=== PATIENT | male | born 1945 | race Caucasian/White ===

== ENCOUNTER → 2017-03-16 | Outpatient (CLI) | payer MEDICARE, BC ==
[~2017-03-16] MED LIST: ASPI325T PO; FISH1CAP59 PO; LANS15TA3 PO; LEVO75TA10 PO; LOSA1TAB96 PO; MULT-1175 PO; SIMV20TA6 PO
--- NOTE | 2017-03-16 09:11 | DI ---
INDICATION: ITS.REASON: Z01.89 PRE-OP EXAM PROCEDURE: CHEST 2-VIEWS UPRIGHT (PA \T\ LAT) Encounter: Initial COMPARISON: None FINDINGS: The lungs are clear without evidence of focal abnormal airspace opacity. There is no pleural effusion or pneumothorax. The heart size, mediastinal contours and pulmonary vascularity are within normal limits. There is no significant skeletal abnormality. IMPRESSION: No acute cardiopulmonary disease. .
== END ==
LOC: IMA 08:46
PROVIDERS: ATTEND Internal Medicine
DX: Z01.89 Encounter for other specified special examinations (principal)

== ENCOUNTER 2017-06-23 05:36 | Inpatient (IN) ==
[2017-06-23] MEDS ORDERED: SALINE FLUSH 10ml SYRINGE IVF PRN (05:52)
[2017-06-23 05:56] VITALS: BMI 25.8
[2017-06-23] MEDS ORDERED: CEFAZOLIN 1 G INJECTION IVP ONE (06:00)
[2017-06-23] MEDS ORDERED: METOCLOPRAMIDE 10mg/2ml INJECTION IVP ONE (06:00)
[2017-06-23] MEDS ORDERED: NOZIN NASAL SWAB NAS ONE ×2 (06:00→10:24)
[2017-06-23] MEDS ORDERED: ACETAMINOPHEN 500 MG TABLET PO ONE (06:00)
[2017-06-23] MEDS ORDERED: TRANEXAMIC ACID 1,000 MG in NS 100 ML IV ONE ×2 (06:00→07:00)
[2017-06-23] MEDS ORDERED: LIDOCAINE 1% (10mg/ml) 2mL INJ PF SDV ID ONE (06:00)
[2017-06-23] MEDS ORDERED: ONDANSETRON 4 MG/2 ML INJECTION IVP ONE (06:00)
[2017-06-23] MEDS ORDERED: FAMOTIDINE PB 20 MG/50 ML BAG IV ONE (06:00)
[2017-06-23] MEDS ORDERED: DEXAMETHASONE 4 MG/ML INJECTION IVP ONE (06:00)
[2017-06-23] MEDS: LR 1,000 ML IV SCH ×3 (06:21→09:20)
[2017-06-23] MEDS ORDERED: VANCOMYCIN 1,000 MG INJECTION ONE (06:23)
--- NOTE | 2017-06-23 06:45 | Anesthesia Preoperative Report ---
Anesthesia Preoperative Record - Date and Time Date: 06/23/17 Preoperative Diagnosis: Rt TKA (RA) M17.11 primary osteoarthritis Proposed Procedure: right total knee NPO Since Date: 06/22/17 NPO Since Time: 23:00 Allergies/Adverse Reactions: Allergies Allergy/AdvReac Type Severity Reaction Status Date / Time No Known Drug Allergies Allergy Unknown Verified 06/23/17 06:03 - Vital Signs Vital Signs: Temperature 98.0 F 06/23/17 05:55 Pulse Rate 64 06/23/17 06:07 Respiratory Rate 17 06/23/17 05:55 Blood Pressure 152/84 H 06/23/17 05:55 Pulse Oximetry 97 06/23/17 05:55 Height and Weight: Height 1.83 m Weight 86.3 kg Body Mass Index 25.8 - Medications Inpatient Medications: Current Medications Lactated Ringer's (Lactated Ringers) 1,000 mls @ 50 mls/hr IV .Q20H VIDHYA Last Admin: 06/23/17 06:21 Dose: 50 mls/hr Epinephrine HCl 0.25 mg/Bupivacaine HCl 30 ml/Morphine Sulfate 15 mg/Ketorolac Tromethamine 60 mg/Sodium Chloride 65.25 mls @ 0 mls/hr OPSITE INTRAOP ONE; Per Protocol PRN Reason: Protocol Stop: 06/23/17 08:01 Tranexamic Acid 1,000 mg/ (Sodium Chloride) 110 mls @ 660 mls/hr IV INTRAOP ONE Stop: 06/23/17 07:09 Sodium Chloride (Iv Flush) 10 - 80 ml IVF PRN PRN PRN Reason: Flushing Home Medications: Home Medications Medication Instructions Recorded Confirmed Type Lansoprazole [Prevacid] 1 tab PO DAILY #0 tab 04/29/15 06/23/17 History Levothyroxine Sodium 1 tab PO DAILY #0 04/29/15 06/23/17 History Losartan/Hydrochlorothiazide 1 tab PO DAILY #0 04/29/15 06/23/17 History [Losartan-Hctz 100-25 mg Tab] Multivitamin [Multi-Vitamin Daily] 1 tab PO DAILY #0 04/29/15 06/23/17 History omega-3 fatty acids 300 mg capsule 300 mg PO DAILY 04/19/17 06/23/17 History Aspirin 1 tab PO DAILY 06/20/17 06/20/17 History Pravastatin [Pravachol] 40 mg PO HS 06/20/17 06/23/17 History - Medical History Cardiovascular: Reports: Hypertension, Other (sees keypuncher and stress test within 1 yr, no [facility] ) - Surgical History HEENT Surgeries: Reports: Nose Surgery (sinus surgery) Cardiac Surgeries/Treatments: Reports: Cardiac Catheterization (2001, 2004), Other (Hyperlipidemia) GI Surgery/Treatments: Reports: Hernia Repair Surgery/Treatment: REPORT: Transurethral Resection, Other (bladder tumors 8 years ago) Musculoskeletal Surgery/Tx: Reports: Knee Arthroscopy (x2-Rt & Lt meniscus repairs), Total Knee Replacement (Lt TKA) Anesthesia Reactions: None Hx Family Anesthesia Reaction: No History of Motion Sickness: No - Social History Smoking Status: Former smoker - Pertinent Findings EKG Rhythm: Normal Sinus Rhythm - Physical Exam Respiratory Exam: Present: lungs clear, bilateral breath sounds equal Cardiovascular Exam: Present: regular rate and rhythm, no murmur - Airway Assessment Mallampati Score: II TMD: 3 Fingerbreadths - ASA ASA Score: 2 - Plan Regional/Trunk Block: Spinal Peripheral Nerve Block: Saphenous-Right, Saphenous-Left - Discussion Discussion: Discussed risks/options/alternatives of anesthesia and questions answered. Patient consents. Nursing pain assessment noted. Attestation Statement: Prior to the delivery of any anesthetic medication, I examined the patient, developed the plan, obtained the patient's consent and discussed the risk and benefits of the procedure with the patient/guardian.
[2017-06-23] MEDS ORDERED: MIDAZOLAM 2mg/2ml INJECTION IVP ONE (06:46)
[2017-06-23] MEDS ORDERED: ROPIVACAINE 0.5% (5mg/ml) 30ml INJ ONE (06:51)
[2017-06-23] MEDS ORDERED: FentaNYL 100 MCG/2 ML INJECTION ONE (07:04)
[2017-06-23] MEDS ORDERED: PROPOFOL 500 MG/50 ML VIAL IV ONE (07:19)
[2017-06-23] MEDS ORDERED: MIDAZOLAM 2mg/2ml INJECTION ONE (07:20)
[2017-06-23] MEDS ORDERED: KETAMINE 500 MG/10 ML INJECTION ONE (07:20)
[2017-06-23] MEDS ORDERED: EPINEPHrine 0.25 MG, BUPIVACAINE 0.25% PF 30 ML, MORPHINE SULFATE 15 MG, KETOROLAC INJ ... OPSITE ONE (08:00)
[2017-06-23] MEDS ORDERED: EPHEDRINE 50mg/ml INJECTION ONE (08:24)
--- NOTE | 2017-06-23 08:26 | Anesthesia Procedure Note ---
Peripheral Nerve Blockade - Procedure Physician: Dada Mills MD Date: 06/23/17 Surgical Procedure: right knee arthroplasty Discussion: Discussed risks/options/alternatives of anesthesia and questions answered. Patient consents. Nursing pain assessment noted. Block Start: 06:58 Block Stop: 06:59 Blocked Employed: [employer] Indication: Post-Operative Pain Approach: Right Side Confirmed Position: Supine Patient: Consent, Risks/Benefits Discussed, Post Block Act. Discussed IV Sedation: Yes Midazolam (mg): 2 Initial Vital Signs: Temperature 98.0 F 06/23/17 05:55 Temperature Source Oral 06/23/17 05:55 Pulse Rate 66 06/23/17 05:55 Respiratory Rate 17 06/23/17 05:55 Blood Pressure 152/84 H 06/23/17 05:55 Blood Pressure Mean 106 06/23/17 05:55 Blood Pressure Position Sitting 06/23/17 05:55 Pulse Oximetry 97 06/23/17 05:55 Oxygen Delivery Method 06/23/17 05:55 Post Vital Signs: Temperature 98.0 F 06/23/17 05:55 Pulse Rate 66 06/23/17 07:00 Respiratory Rate 14 06/23/17 07:00 Blood Pressure 131/82 06/23/17 06:56 Pulse Oximetry 97 06/23/17 07:00 Initial Pain Pain Score: 2 Post Block Pain Score: 2 Prep: Chlorhexadine/ETOH Ultrasound Used?: Yes - Injectate Ropivacaine (%): 0.5 Ropivacaine (mL): 20 Injection: Injection made incrementally with constant monitoring and aspiration every ml
[2017-06-23] MEDS ORDERED: VANCOMYCIN 1,000 MG INJECTION IAR ONE (09:03)
--- NOTE | 2017-06-23 09:22 | Operative Note ---
- Procedure Side: right Preoperative Diagnosis: knee primary DJD Postoperative Diagnosis: Same as preoperative diagnosis. Operation: total knee arthroplasty Surgeon: Tu Mills MD Manager E Learning: Grant Moctezuma Complications: None. Regional/Trunk Block: Spinal Peripheral Nerve Block: Saphenous-Right Estimated Blood Loss: See Anesthesia Record. Fluids: Please see Anesthesia Record. Description of Procedure: Mr. Pringle and his right knee were identified and marked in the preoperative holding area. He was brought back to the operating suite and spinal anesthetic was administered he was then placed supine on the operating table. A saphenous nerve block had been placed in the preoperative holding area. The right lower extremity was prepped and draped in my normal sterile fashion. Timeout was performed. Mr. Mcclain Rosa preoperative CT scan and this was used with the [employer] robot during surgery. A standard anterior midline incision followed by medial parapatellar arthrotomy was performed. I then placed tibial and femoral arrays. The tibial array was placed mid shaft and the femoral array was placed in the distal medial femoral metaphysis. Checkpoints were also placed. A medial release was performed as well as removal of the anterior fat pad and anterior meniscus. The bone was then pressure with the robot. Osteophytes were removed. Gaps were then captured at 0 and 90 with the [employer] software. We then balanced the knee using the [employer] software. The [employer] robotic arm was then brought in to help assist with the bone cuts. After this remaining meniscus and osteophytes were removed. Trial component was placed with a 9 mm spacer. This gave him full range of motion and he was well balanced throughout. The patella was then resurfaced to a size 35. The bone was then prepared for cementing and components were cemented in place and allowed to cure in extension. Betadine solution was used during the surgery as well as joint injection into the soft tissue. After the cement had cured a final check was performed and is happy with a 9 mm spacer so final 9 mm spacer was placed. 1 g vancomycin powder was placed into the knee joint before the capsulotomy was closed with #1 Vicryl. 2- 0 Vicryl was used in the subcutaneous tissue followed by running 4-0 Monocryl in the skin. Dermabond was used on the skin followed by Dermabond and sterile dressing. The drapes were then removed and he was taken to the recovery room under the care of anesthesia.
--- NOTE | 2017-06-23 09:38 | History & Physical Update ---
- History and Physical Update Date: 06/23/17 Update: I evaluated this patient and found no changes in the history and clinical exam findings. The treatment plan and recommendations are also unchanged from the previous documentation.
--- NOTE | 2017-06-23 10:02 | Anesthesia Postoperative Note ---
- Date and Time Date: 06/23/17 Time: 10:02 - Status Patient Participated in Evaluation: Patient Participated in Person Vital Signs: Temperature 96.2 F L 06/23/17 09:43 Pulse Rate 64 06/23/17 09:43 Respiratory Rate 12 06/23/17 09:43 Blood Pressure 134/72 06/23/17 09:43 Pulse Oximetry 93 06/23/17 09:43 Respiratory Function: Airway Patent, Regular Respirations Cardiovascular Function: Regular Pulse Mental Status: Alert and Oriented Pain Intensity: 0 Hydration: IV Infusing Complications During Recover: None Apparent Post Anesthesia Care Notes: moves lower extremeties, block level T10 - Follow-Up Instructions Instructions: Per Surgeon
[2017-06-23] MEDS ORDERED: DiphenhydrAMINE 50 MG/ML INJECTION IVP PRN (10:24)
[2017-06-23] MEDS ORDERED: LORazepam 1 MG TABLET PO PRN (10:24)
[2017-06-23] MEDS ORDERED: TRAMADOL 50 MG TABLET PO PRN (10:24)
[2017-06-23] MEDS ORDERED: ONDANSETRON 4 MG/2 ML INJECTION IVP PRN (10:24)
[2017-06-23] MEDS ORDERED: DiphenhydrAMINE 25 MG CAPSULE PO PRN (10:24)
--- NOTE | 2017-06-23 10:46 | XRay Report ---
Indication: Post-Op Right Knee Total Knee Arthroplasty PROCEDURE: XR knee RT 2V: Encounter: Initial Comparison: None Findings: Postoperative changes of right total knee replacement are seen. There is expected postoperative subcutaneous gas. No evidence of hardware failure or acute fracture. No retained radiopaque surgical instruments or sponges. Overlying material causing artifact. Impression: New right total knee prosthesis without evidence of immediate complication. .
[2017-06-23] MEDS: NS 1,000 ML IV SCH (10:53)
[2017-06-23] MEDS: ACETAMINOPHEN 325 MG TABLET PO SCH ×3 (12:14→21:45)
[2017-06-23] MEDS: NOZIN NASAL SWAB NAS SCH ×2 (13:40→21:46)
[2017-06-23] MEDS: CEFAZOLIN 2 G in NS 100 ML IV SCH ×2 (14:47→22:25)
[2017-06-23] MEDS ORDERED: Oxycodone *IR* 15 MG TABLET PO PRN (18:30)
[2017-06-23] MEDS ORDERED: SENNOSIDES 8.6 MG TABLET PO SCH (21:00)
[2017-06-23] MEDS ORDERED: PRAVASTATIN 40 MG TABLET PO SCH (21:00)
[2017-06-23] MEDS ORDERED: RIVAROXABAN 10 MG TABLET PO SCH (21:00)
[2017-06-23] MEDS: SYSTANE EYE DROPS 0.7ml EACH EYE SCH ×2 (21:45→22:26)
[2017-06-23] MEDS: DOCUSATE SODIUM 100 MG CAPSULE PO SCH (21:48)
[2017-06-23] MEDS: Oxycodone *IR* 5 MG TABLET PO PRN (22:00)
[2017-06-24] MEDS: NS 1,000 ML IV SCH (02:33)
[2017-06-24] MEDS: NOZIN NASAL SWAB NAS SCH (05:31)
[2017-06-24] MEDS ORDERED: PANTOPRAZOLE 20 MG TABLET PO SCH (06:30)
[2017-06-24] MEDS ORDERED: LEVOTHYROXINE 75 MCG TABLET PO SCH (06:30)
--- NOTE | 2017-06-24 07:37 | Orthopedic Progress Note ---
Date: Subjective/Severity of Illness: Curt is doing great. No CP, cough or SOA. Slept poorly but for no specific reason. O2 sats dipped during the night but are normal this AM Orthopedic Objective PO Vital signs: Temperature 97.8 F 06/24/17 03:31 Pulse Rate 77 06/24/17 03:31 Respiratory Rate 18 06/24/17 05:00 Blood Pressure 153/85 H 06/24/17 03:31 Pulse Oximetry 95 06/24/17 05:00 Height and Weight: Height 6 ft Weight 196 lb 3.382 oz Body Mass Index 25.8 - Constitutional General Appearance: Present: alert, no acute distress - Respiratory Exam Present: non-labored - Cardiovascular Exam Present: pedal pulses intact Capillary Refill: < 2-3 Seconds - Extremities Exam Extremities: Present: pulses intact. Absent: calf tenderness - Surgical Site Incision: clean, dry, intact, Mepilex dressing intact, no drainage, bloody drainage present (on the lower pin sites. ) - Integumentary Exam Present: pink, warm, dry - Neurological Exam Present: no deficits - Psychiatric Exam Present: alert - Labs Result Diagrams: 06/24/17 04:12 06/24/17 04:12 Abnormal lab results 06/24/17 06/24/17 Range/Units 04:12 04:12 WBC 17.3 H (4.5-11.0) T/MM3 RBC 3.78 L (4.50-5.90) M/MM3 Hgb 10.9 L (13.5-17.5) GM/DL Hct 33.3 L (41-53) % MPV 9.2 L (9.4-12.4) UM3 BUN 21.0 H (9-20) MG/DL Glucose 117 H (75-110) MG/DL H & H 06/24/17 Range/Units 04:12 Hgb 10.9 L (13.5-17.5) GM/DL Hct 33.3 L (41-53) % Orthopedic Assessment and Plan (1) Primary osteoarthritis of right knee Status: Acute Assessment and Plan: Current anti-coagulation protocol for VTE prophylaxis. SCD's. Wean from O2. WBC slightly elevated. This is likely a stress response to surgery and to IV steroids pre op. Monitor. PT/OT services to improve independent function. Discharge Planning per Case Management. - Anticoagulation Therapy Anticoagulation: other (Xarelto x 1 month. ) Hospital Course Summary Disclaimer: The visit summary below is not to be considered part of the above Progress Note.
[2017-06-24 07:51] VITALS: PULSE 80; RESP 16; O2SAT 99
[2017-06-24] MEDS: DOCUSATE SODIUM 100 MG CAPSULE PO SCH (08:05)
[2017-06-24] MEDS: ACETAMINOPHEN 325 MG TABLET PO SCH (08:07)
[2017-06-24] MEDS: SYSTANE EYE DROPS 0.7ml EACH EYE SCH (08:08)
[2017-06-24] MEDS ORDERED: POLYETHYL GLYCOL 3350 17gm PACKET PO SCH (09:00)
[2017-06-24] MEDS ORDERED: OMEGA-3 ACID ESTERS 1 GM CAPSULE PO SCH (09:00)
[2017-06-24] MEDS ORDERED: SENNOSIDES 8.6 MG TABLET PO PRN (09:40)
[2017-06-24] MEDS: Oxycodone *IR* 5 MG TABLET PO PRN (10:16)
[2017-06-24 11:45] VITALS: BP 160/85; TEMP 97
--- NOTE | 2017-06-24 13:33 | Discharge Summary ---
Orthopedic Discharge Info Date of admission: 06/23/17 05:36 Primary care physician: Ankur Palomino DO Attending Physician: Dada Mills MD Consults: 06/23/17 05:52 Consult to Anesthesiology [CONS] Routine Consulting Provider: PRISCILLA Castellon Reason For Exam: Preoperative Assessment 06/23/17 10:24 Case Management Consult [CONS] Routine Reason For Exam: Discharge Planning DME-Walker [CONS] Routine Height: 6 ft Weight: 190 lb 4.143 oz Comment: change dressing in 2 weeks Total Joint Outpatient Therapy [CONS] Routine Comment: change dressing in 2 weeks - Discharge Diagnosis (1) Primary osteoarthritis of right knee Status: Acute - Procedures Procedures: Procedures Right TKA - Laboratory Result Diagrams: 06/24/17 04:12 06/24/17 04:12 Laboratory: Abnormal lab results 06/24/17 06/24/17 Range/Units 04:12 04:12 WBC 17.3 H (4.5-11.0) T/MM3 RBC 3.78 L (4.50-5.90) M/MM3 Hgb 10.9 L (13.5-17.5) GM/DL Hct 33.3 L (41-53) % MPV 9.2 L (9.4-12.4) UM3 BUN 21.0 H (9-20) MG/DL Glucose 117 H (75-110) MG/DL H & H 06/24/17 Range/Units 04:12 Hgb 10.9 L (13.5-17.5) GM/DL Hct 33.3 L (41-53) % Orthopedic Discharge HPI - HPI Comments This patient was admitted for elective surgical tx of end stage degenerative joint disease that failed to respond to conservative treatment. Further details of this is found in the admission H&P. Orthopedic Hospital Course Hospital course: 06/24/17 13:31 After appropriate preoperative clearance and signing of operative consent, the patient was given IV antibiotics, according to orthopedic protocol. The patient was taken to the operating room and underwent elective joint arthroplasty. Following surgery, antibiotics were discontinued less than 24 hours according to joint protocol. Appropriate anticoagulants were initiated and SCDs added for DVT prevention. The dressing was clean, dry, and intact. Pain control was obtained via multimodal approach. Bowel motivation addressed with scheduled and PRN medications. Early mobilization was initiated through PT services. Discharge arrangements made by a collaborative effort between the patient and Case Management. Follow-up is scheduled in 2-3 weeks. Discharge instructions given by orthopedic providers and nursing staff at discharge. Discharge condition was good. Ongoing care required?: No - Postoperative Anemia patient received IVF, labs monitored daily, no intervention required, HGB drop- acceptable - Leukocytosis due to preoperative IV Decadron Discharge Plan - Med Rec/Dispo Referrals/Follow Up: Dada Mills MD [Physician] - 07/18/17 11:30 am Additional Instructions: PHYSICAL THERAPY, [place] ON 06/28/2017 AT 1:15PM FOR PHYSICAL THERAPY WINTER. PHONE [phone] Prescriptions: New Oxycodone *Ir* [Roxicodone *Ir*] 5 - 15 mg PO Q3H PRN #60 tab PRN Reason: Pain Acetaminophen [Tylenol] 650 mg PO QID #100 tab Rivaroxaban [Xarelto] 10 mg PO 2100 tablet Continue Levothyroxine Sodium 1 tab PO DAILY #0 Lansoprazole [Prevacid] 1 tab PO DAILY #0 tab Pravastatin [Pravachol] 40 mg PO HS Losartan/Hydrochlorothiazide [Losartan-Hctz 100-25 mg Tab] 1 tab PO DAILY #0 Multivitamin [Multi-Vitamin Daily] 1 tab PO DAILY #0 omega-3 fatty acids 300 mg capsule 300 mg PO DAILY Discontinued Aspirin 1 tab PO DAILY - Disposition 01 Discharged Home, Self-Care
--- NOTE | 2017-06-24 13:40 | Orthopedic Progress Note ---
Date: Subjective/Severity of Illness: Curt feels ready to go home. Pain is controlled with Oxycodone. He has passed the car and stairs with PT. He denies nausea and is eating well. He denies chest pain or shortness of breath. Dr. Palomino has provided Xarelto and Movantik already and he has them at home. Orthopedic Objective PO Vital signs: Temperature 97.0 F 06/24/17 11:44 Pulse Rate 80 06/24/17 11:44 Respiratory Rate 16 06/24/17 11:44 Blood Pressure 160/85 H 06/24/17 11:44 Pulse Oximetry 99 06/24/17 11:44 Height and Weight: Height 6 ft Weight 198 lb 6.656 oz Body Mass Index 25.8 - Constitutional General Appearance: Present: alert, no acute distress - Respiratory Exam Present: non-labored - Cardiovascular Exam Present: pedal pulses intact - Extremities Exam Extremities: Present: pulses intact. Absent: calf tenderness - Surgical Site Incision: clean, dry, intact, Mepilex dressing intact, no drainage, bloody drainage present (on the lower pin sites. ) - Integumentary Exam Present: pink, warm, dry - Neurological Exam Present: no deficits - Psychiatric Exam Present: alert - Labs Result Diagrams: 06/24/17 04:12 06/24/17 04:12 Abnormal lab results 06/24/17 06/24/17 Range/Units 04:12 04:12 WBC 17.3 H (4.5-11.0) T/MM3 RBC 3.78 L (4.50-5.90) M/MM3 Hgb 10.9 L (13.5-17.5) GM/DL Hct 33.3 L (41-53) % MPV 9.2 L (9.4-12.4) UM3 BUN 21.0 H (9-20) MG/DL Glucose 117 H (75-110) MG/DL H & H 06/24/17 Range/Units 04:12 Hgb 10.9 L (13.5-17.5) GM/DL Hct 33.3 L (41-53) % Orthopedic Assessment and Plan (1) Primary osteoarthritis of right knee Status: Acute Assessment and Plan: Current anti-coagulation protocol for VTE prophylaxis. SCD's. Weaned from O2 WBC slightly elevated. This is likely a stress response to surgery and to IV steroids pre op. He continues to be afebrile, wound normal. PT/OT shows adequate ambulation. Discharge Planning to home. Xarelto and Movantik already provided by Dr. Palomino - Anticoagulation Therapy Anticoagulation: other (Xarelto x 1 month. ) Hospital Course Summary Disclaimer: The visit summary below is not to be considered part of the above Progress Note.
[2017-06-25] MEDS ORDERED: BISACODYL 10 MG SUPPOSITORY RECTALLY SCH (20:00)
== END 2017-06-24 14:40 | disposition home or self-care (01) | DRG 470 ==
LOC: SRG 05:36
PROVIDERS: ADMIT Orthopaedic Surgery; ATTEND Orthopaedic Surgery